=== PATIENT | female | born 1965 | race Two or more races ===

== ENCOUNTER 2019-10-10 06:30 | Day surgery (SDC) | payer OTHER ==
[~2019-10-10 06:30] MED LIST: ANGELIQ 0.5 MG/1 TAB; CYMBALTA60 MG; PLAQUENIL; TOPROL XL100 MG
== END 2019-10-10 10:50 | disposition home or self-care (01) ==
LOC: AMB-ENDOS 06:30
DX: K63.5 Polyp of colon (principal)

== ENCOUNTER 2022-11-26 08:58 | Outpatient (CLI) | payer OTHER | END 2022-11-26 09:01 | disposition home or self-care (01) | LOC: SONOGRAMA 08:58 | PROVIDERS: ATTEND Pathology Anatomic Pathology & Clinical Pathology | DX: D34 Benign neoplasm of thyroid gland (principal); E04.9 Nontoxic goiter, unspecified ==